=== PATIENT | female | born 1995 | race Two or more races ===

== ENCOUNTER 2019-11-17 09:25 | Emergency (ER) | payer BC, MEDICAID ==
[~2019-11-17] VITALS: Ht 160 cm; Wt 81.9 kg
--- NOTE | 2019-11-17 10:10 | NUR ---
PT CAME IN CO OF VAG BLEEDING X 5 DAYS. PT STATES SHE IS 9 WEEKS PREG. PT SAYS THE BLEEDING HAS BEEN BRIGHT RED WITH CLOTS. CURRENTLY THERE IS NO VAGINAL DISCHARGE OR BLEEDING. THIS IS PTS 3 PREG, WITH 1 TO TERM AND 1 AB. PT IS RESTING IN [facility]. FEMALE TO PEFORM STRAIGHT CATH. 2 BLANKETS PROVIDED. PT CONNECTED TO MONITORING EQUIPMENT.
[2019-11-17 10:20] LABS: BASOPHILS # (AUTO) 0.02 x10^3/uL (0-0.1); BASOPHILS % (AUTO) 0 % (0-1); EOSINOPHILS # (AUTO) 0.13 x10^3/uL (0-0.4); EOSINOPHILS % (AUTO) 1 % (1-7); LYMPHOCYTES # (AUTO) 3.64 x10^3/uL (1-3.4); LYMPHOCYTES % (AUTO) 28 % (22-44); MD NO; MEAN CORPUSCULAR HEMOGLOBIN 28.7 pg (27.0-34.8); MEAN CORPUSCULAR HGB CONC 33.2 g/dL (32.4-35.8); MEAN CORPUSCULAR VOLUME 86.3 fL (80-100); MONOCYTES % (AUTO) 5 % (2-9); NEUTROPHILS % (AUTO) 67 % (42-75); PLATELET COUNT 276 x10^3/uL (130-400); RED BLOOD COUNT 4.69 x10^6/uL (3.82-5.3); RED CELL DISTRIBUTION WIDTH 14.4 % (9.6-15.2)
[2019-11-17 10:33] LABS: ALANINE AMINOTRANSFERASE 61 U/L (12-78); ALBUMIN 3.8 g/dL (3.4-5.0); ANION GAP 7 mmol/L (5-15); CALCIUM 9.2 mg/dL (8.5-10.1); CHLORIDE 104 mmol/L (98-107); CREATININE 0.68 mg/dL (0.55-1.02)
[2019-11-17 10:40] LABS: MICROSCOPIC INDICATED
[2019-11-17 10:51] LABS: ALKALINE PHOSPHATASE 90 U/L (45-117); BILIRUBIN,TOTAL 0.4 mg/dL (0.2-1.0); TOTAL PROTEIN 8.2 g/dL (6.4-8.2)
[2019-11-17 11:35] VITALS: BP 136/90
== END 2019-11-17 13:02 | disposition home or self-care (01) ==
LOC: ED 10:09
DX: O20.0 Threatened abortion (principal); Z3A.01 Less than 8 weeks gestation of pregnancy; Z90.49 Acquired absence of other specified parts of digestive tract
CPT/HCPCS: 36415; 76801; 80053; 81001; 84702; 85025; 86901; 87086; 99284